=== PATIENT | male | born 2000 | race Caucasian/White ===

== ENCOUNTER 2023-06-10 09:50 | Emergency (ER) | payer MEDICAID ==
[~2023-06-10] VITALS: Ht 180.3 cm; Wt 68.2 kg
[2023-06-10 09:59] LABS: COVID AG,FIA SOURCE NASAL SWAB
[2023-06-10 10:16] LABS: SARS-COV2 (COVID) ANTIGEN,FIA Negative (Negative)
[2023-06-10 10:18] LABS: INFLUENZA TYPE B NEGATIVE FOR TYPE B (NEGATIVE)
[2023-06-10 10:30] LABS: INFLUENZA TYPE A POSITIVE FOR TYPE A (NEGATIVE)
[2023-06-10] MEDS ORDERED: ACETAMINOPHEN 500 MG TABLET PO ONE (10:45)
[2023-06-10] MEDS ORDERED: IBUPROFEN 600 MG TABLET PO ONE (10:45)
[2023-06-10 11:08] VITALS: BP 124/76; PULSE 98; RESP 18; TEMP 98.6
[2023-06-10] MEDS ORDERED: IBUP-1492 PO (11:16)
[2023-06-10] MEDS ORDERED: ACET-3385 PO (11:16)
== END 2023-06-10 11:40 | disposition home or self-care (01) ==
LOC: EMS 09:51
DX: J10.1 Influenza due to other identified influenza virus with other respiratory manifestations (principal); Z20.822 Contact with and (suspected) exposure to COVID-19
CPT/HCPCS: 71045; 87804; 99284